=== PATIENT | female | born 1975 | race Caucasian/White ===

== ENCOUNTER → 2020-12-10 10:02 | Outpatient (CLI) | payer OTHER, SELFPAY | PROVIDERS: Referring Provider Dermatology Pediatric Dermatology; Visit Provider Dermatology Pediatric Dermatology | DX: L40.0 Psoriasis vulgaris (principal); L70.8 Other acne; Z79.899 Other long term (current) drug therapy | CPT/HCPCS: 36415; 86480; 86704; 86705; 86706; 86708; 86709; 86803; 87340 ==

== ENCOUNTER → 2020-12-29 10:37 | Outpatient (CLI) | payer OTHER, SELFPAY ==
[2021-01-04 07:16] LABS: QNTFERON TB Mitogen Value > 10.00 IU/mL (.); QNTFERON TB Nil Value 0.02 IU/mL (.); QNTFERON TB1+ Ag Value 0.02 IU/mL (.); QNTFERON TB2+ Ag Value 0.03 IU/mL (.)
[2021-01-04 12:23] LABS: QNTIFERON TB Positive Criteria Negative (Negative)
== END ==
PROVIDERS: Visit Provider Dermatology Pediatric Dermatology
DX: L40.0 Psoriasis vulgaris (principal); L70.8 Other acne; Z79.899 Other long term (current) drug therapy
CPT/HCPCS: 36415; 86480